=== PATIENT | male | born 1980 | race Caucasian/White ===

== ENCOUNTER 2021-11-16 18:52 | Emergency (ER) | payer SELFPAY ==
[~2021-11-16] VITALS: Ht 172.7 cm; Wt 81.0 kg
[2021-11-16 19:00] VITALS: BP 164/116
== END 2021-11-16 23:00 | disposition left against medical advice (07) ==
LOC: ER 18:52
DX: Z53.21 Procedure and treatment not carried out due to patient leaving prior to being seen by health care provider (principal)

== ENCOUNTER 2023-04-09 20:34 | Emergency (ER) | payer SELFPAY ==
[~2023-04-09] VITALS: Ht 180.3 cm; Wt 138.3 kg
[2023-04-09 21:10] VITALS: O2SAT 98
[2023-04-09] MEDS ORDERED: KETOROLAC 60MG/2ML VIAL IM ONE (23:30)
[2023-04-10] MEDS ORDERED: IBUP-2029 MT (02:17)
[2023-04-10 03:05] VITALS: BP 137/100; PULSE 71; RESP 14; TEMP 98.2
== END 2023-04-10 03:07 | disposition home or self-care (01) ==
LOC: ER 20:34
DX: M25.511 Pain in right shoulder (principal)
CPT/HCPCS: 99285; 73030; 96372; 73200; J1885